=== PATIENT | female | born 1995 | race Caucasian/White ===

== ENCOUNTER 2019-01-22 08:53 | Emergency (ER) | payer MEDICAID, SELFPAY ==
[2019-01-22 08:58] VITALS: BP 122/72; PULSE 79; RESP 18; TEMP 36.6; O2SAT 98
--- NOTE | 2019-01-22 09:05 | ED.GENADUL_ITS ---
Discharge Plan Disposition Patient Disposition: HOME Discharge Details Chief Complaint: Sorethroat Clinical Impression: URI (upper respiratory infection), Nausea Primary Care Provider: Jared Henning ED Provider: Britt Doty Home Meds and New Rx's Prescriptions: New ondansetron 4 mg tablet,disintegrating 4 mg PO QID PRN (Reason: nausea and vomiting) Qty: 10 RF: 0 Continued famotidine 20 MG tablet 20 mg PO BID Qty: 60 RF: 0 Discharge Instructions Instructions: Upper Respiratory Infection (ED), Acute Nausea and Vomiting (ED) Additional Instructions: Encourage hydration. Tylenol and ibuprofen as needed for discomfort. We may use the Zofran as prescribed to help with any recurrent nausea. You may use lozenges and honey to help with sore throat. Please follow-up with primary care next week if not improving. If you develop shortness of breath, difficulty breathing, inability stay hydrated or the new/worsening symptoms please seek care urgently once again. Please begin vitamin. Please follow-up with [facility] to discuss care. Stand Alone Forms: Work Release Referrals: Jared Henning [Primary Care Provider] - Discharge Data Discharge Date/Time-TO BE ENTERED AT DEPARTURE: 01/22/19 09:36 Medical Decision Making Patient is a 23-year-old female presents today with chief complaint of sore throat. Reports that this began yesterday. Also reports that she has had nausea x5 days with one episode of vomiting. Denies any abdominal pain. No fevers or chills. Is endorsing right otalgia. Endorses cough that is nonproductive. Cough also began yesterday. On exam, posterior oropharynx mildly erythematous. Lungs are clear. No findings to suggest acute illness media. Advised likely viral etiology. Patient did have a normal menses last month but is actively trying to get which may be a source of her nausea. We will obtain a UPT. Discussed this plan with the patient is in agreement. I did advise that either way, she should begin taking a vitamin if she is actively trying to become . UPT negative. Discussed these findings with the patient. Advised likely viral etiology source of her URI and nausea. Will prescribe Zofran to help with symptomatic management. Encourage hydration. Advised Tylenol and ibuprofen as needed for discomfort. Advise follow-up with primary care next week if not improving. We discussed new/worsening symptoms when to seek care urgently once again. All of her questions and concerns were addressed and she is in agreement this plan. HPI General Mode of arrival: ambulatory . Date/Time Provider Initiated Documentation: 01/22/19 09:03 . Limitations to Documentation: no limitations . Information obtained by: patient, family and RN notes reviewed . History of Present Illness 23 year old F presents to the emergency department with the chief complaint of sore throat, described as moderate, Quality is described as burning, Patient reports no radiation. Patient started experiencing this day(s) (1) and it has been constant. No relieving factors improve symptom(s), No exacerbating factors reported . Patient notes cough and nausea/vomiting (nausea x 5 days, vomiting x 1 last week); denies chest pain, diaphoresis, fever/chills, headaches, loss of appetite, rash, shortness of breath and syncope. Patient did receive the following treatments prior to arrival, none Related Data Home Medications Medication Instructions Recorded Confirmed famotidine 20 mg PO BID #60 tab 06/20/17 ondansetron 4 mg PO QID PRN #10 tab 01/22/19 Previous Rx's Medication Instructions Recorded famotidine 20 mg PO BID #60 tab 06/20/17 ondansetron 4 mg PO QID PRN #10 tab 01/22/19 Allergies Allergy/AdvReac Type Severity Reaction Status Date / Time No Known Allergies Allergy Unverified 06/20/17 12:16 General Stated Complaint: Sorethroat ROXANNE: 4 Review of Systems Constitutional Reports as per HPI and Denies headache(s) Eyes Reports as per HPI, Denies eye discharge and Denies irritation ENT Reports as per HPI, Reports otalgia (right), Denies headache(s), Denies hoarseness, Denies nasal congestion, Denies nasal discharge, Denies sinus pain, Denies sinus pressure, Reports sore throat, Denies throat swelling and Denies tongue swelling Cardiovascular Reports as per HPI, Denies chest pain and Denies dyspnea Respiratory Reports as per HPI and Denies dyspnea Gastrointestinal Reports as per HPI, Denies abdominal pain, Denies change in bowel habits, Reports nausea and Denies vomiting Genitourinary Reports system reviewed and no additional complaints, except as docu (no change in urinary habits) and Denies abnormal menses (normal menses last month) Integumentary/Breasts Reports as per HPI and Denies rash Neurologic Reports as per HPI and Denies headache(s) Allergic/Immunologic Denies throat swelling and Denies tongue swelling [facility] Social History Smoking/Tobacco Use Status: Former Tobacco Use Alcohol Intake: current Alcohol Intake frequency: holidays/special occasions only Drug use: Never Do you feel safe in your relationship?: Yes Exam Const General: cooperative, healthy appearing, comfortable, no acute distress, well developed and well groomed Nutritional Appearance: average body habitus and well nourished Orientation: alert and awake [facility] Head: normal to inspection, normocephalic and atraumatic Ears: hearing grossly normal bilaterally, external ears normal and TM's normal bilaterally General nose exam: external nose normal and nares normal Face and sinus: normal facial exam, sinuses nontender and face symmetric Mouth: oral mucosae normal, lip normal, tongue normal, oropharynx normal, moist mucous membranes, no muffled voice, no trismus and No restricted motion Teeth and gingiva: dentition normal Throat: posterior oropharynx abnormal (mild erythema), tonsils normal and uvula midline Eyes General: appearance normal, both eyes and all related structures Neck Neck: normal visual inspection, full ROM, no lymphadenopathy and no meningeal s igns Resp Effort & Inspection: normal respiratory effort, able to speak in complete sentences and no respiratory distress Auscultation: clear to auscultation bilaterally, no rales, no rhonchi and no wheezes Cardio Rate: regular rate Rhythm: regular rhythm Heart Sounds: S1 normal and S2 normal GI Inspection: normal to inspection, no edema and non-distended Palpation: soft, no hepatosplenomegaly, no hernias, not rigid and nontender Percussion: normal to percussion Auscultation: normal bowel sounds Skin General skin exam: no rashes or lesions noted Neuro General: alert and awake Cognition: normal cognition Speech: speech normal Gait: normal gait Psych Appearance: grossly normal and well kempt Mental Status: mental status grossly normal Speech and Movement: speech and movement normal Course Vital Signs Temperature 36.6 C 01/22/19 08:58 Pulse 79 01/22/19 08:58 Respiratory Rate 18 01/22/19 08:58 Blood Pressure 122/72 01/22/19 08:58 Pulse Oximetry 98 01/22/19 08:58 Temperature 36.6 C 01/22/19 08:58 Temperature Source Tympanic 01/22/19 08:58 Pulse 79 01/22/19 08:58 Respiratory Rate 18 01/22/19 08:58 Blood Pressure 122/72 01/22/19 08:58 Blood Pressure Position Sitting 01/22/19 08:58 Pulse Oximetry 98 01/22/19 08:58 Oxygen Delivery Method Room Air 01/22/19 08:58 Oxygen Flow Rate 0 01/22/19 08:58 Pain Level 9 01/22/19 08:58
== END 2019-01-22 09:36 | disposition home or self-care (01) ==
PROVIDERS: Emergency Provider Physician Assistant; PCP Nurse Practitioner Family
DX: J02.9 Acute pharyngitis, unspecified (principal); R11.0 Nausea
CPT/HCPCS: 87880; 99283

== ENCOUNTER 2019-12-12 20:07 | Emergency (ER) | payer SELFPAY ==
[2019-12-12 20:13] VITALS: BP 146/72; PULSE 102; RESP 16; TEMP 36.8; O2SAT 96
--- NOTE | 2019-12-12 20:22 | ED.GENADUL_ITS ---
Discharge Plan Disposition Patient Disposition: HOME Condition: Stable Discharge Details Chief Complaint: RashLesion Clinical Impression: Rash Primary Care Provider: Jared Henning ED Provider: Landon Hu Home Meds and New Rx's Prescriptions: New prednisone 20 mg tablet 60 mg PO DAILY 4 Days Qty: 12 RF: 0 No Action famotidine 20 MG tablet 20 mg PO BID Qty: 60 RF: 0 ondansetron 4 mg tablet,disintegrating 4 mg PO QID PRN (Reason: nausea and vomiting) Qty: 10 RF: 0 Discharge Instructions Additional Instructions: your rash is consistent with dermatitis which can be caused by things like poison skylar you can take benadryl for itching as needed every 4 hours if not better in a week see your primary care provider if you feel more ill, have difficulty breathing or fevers return to the emergency department Medical Decision Making 24 yo female who denie chronic medical problems comes in with rash primarily on lower back and upper posterior thighs since Sunday after sitting on a lawn. Denies fevers, gi symptoms or pain or respiratory symptoms. States it's itching. Has several mild erythema of various sizes that are slightly raised on the back and santiago and not warm to touch. Consistent with dermatitis, no evidence of cellulitis or nec fasc. Will treat with prednisone, advised f/u with pcp and return precautions given Differential Diagnosis Differential Diagnosis: dermatitis, poison skylar HPI General Mode of arrival: ambulatory . Date/Time Provider Initiated Documentation: 12/12/19 20:12 . Limitations to Documentation: no limitations . Information obtained by: patient . History of Present Illness 24 year old F presents to the emergency department with the chief complaint of rash, described as moderate, and is localized to the back. Patient started expe riencing this day(s) (5) and it has been constant. No relieving factors improve symptom(s), No exacerbating factors reported . Patient notes no other symptoms.. Related Data Home Medications Medication Instructions Recorded Confirmed famotidine 20 mg PO BID #60 tab 06/20/17 ondansetron 4 mg PO QID PRN #10 tab 01/22/19 prednisone 60 mg PO DAILY 4 Days #12 tab 12/12/19 Previous Rx's Medication Instructions Recorded famotidine 20 mg PO BID #60 tab 06/20/17 ondansetron 4 mg PO QID PRN #10 tab 01/22/19 prednisone 60 mg PO DAILY 4 Days #12 tab 12/12/19 Allergies Allergy/AdvReac Type Severity Reaction Status Date / Time No Known Allergies Allergy Unverified 06/20/17 12:16 General Stated Complaint: RashLesion ROXANNE: 4 Review of Systems All systems reviewed & are unremarkable except as noted in HPI and below Constitutional Constitutional: Denies chills, Denies fever(s) and Denies weakness Cardiovascular Cardiovascular: Denies chest pain and Denies dyspnea Respiratory Respiratory: Denies cough and Denies dyspnea Gastrointestinal Gastrointestinal: Denies abdominal pain, Denies nausea and Denies vomiting Musculoskeletal Musculoskeletal: Denies joint swelling Neurologic Neurologic: Denies weakness [facility] Social History Smoking/Tobacco Use Status: Former Tobacco Use Alcohol Intake: current Alcohol Intake frequency: holidays/special occasions only Drug use: Never Do you feel safe at home: Yes Do you feel safe in your relationship?: Yes Exam Const General: no acute distress Orientation: alert HENMT Head: normal to inspection Ears: external ears normal General nose exam: external nose normal Mouth: moist mucous membranes Eyes General: appearance normal, both eyes and all related structures Neck Neck: normal visual inspection Resp Effort & Inspection: normal respiratory effort and able to speak in complete sentences Cardio Rate: regular rate Skin General skin exam: elasticity normal Neuro General: patient alert and patient oriented x3 Extrem General: normal to inspection Psych Mental Status: mental status grossly normal Course Vital Signs Vital signs: Vital Signs Temperature 36.8 C 12/12/19 20:13 Pulse 102 H 12/12/19 20:13 Respiratory Rate 16 12/12/19 20:13 Blood Pressure 146/72 H 12/12/19 20:13 Pulse Oximetry 96 12/12/19 20:13 Temperature 36.8 C 12/12/19 20:13 Temperature Source Temporal Artery Scan 12/12/19 20:13 Pulse 102 H 12/12/19 20:13 Respiratory Rate 16 12/12/19 20:13 Respiratory Effort 12/12/19 20:17 Blood Pressure 146/72 H 12/12/19 20:13 Blood Pressure Position Sitting 12/12/19 20:13 Pulse Oximetry 96 12/12/19 20:13 Oxygen Delivery Method Room Air 12/12/19 20:13 Oxygen Flow Rate 0 12/12/19 20:13 Pain Level 7 12/12/19 20:13
[2019-12-12] MEDS: predniSONE 20 MG TAB 60 MG PO (20:27)
== END 2019-12-12 20:25 | disposition home or self-care (01) ==
LOC: ER 20:27
PROVIDERS: Emergency Provider Emergency Medicine; PCP Nurse Practitioner Family
DX: L30.8 Other specified dermatitis (principal)
CPT/HCPCS: 99283; J7512

== ENCOUNTER 2020-02-03 05:48 | Emergency (ER) | payer SELFPAY ==
[2020-02-03 05:51] VITALS: BP 138/74; PULSE 82; RESP 16; TEMP 36.8; O2SAT 99
--- NOTE | 2020-02-03 06:01 | ED.GENADUL_ITS ---
Discharge Plan Disposition Patient Disposition: HOME Condition: Stable Discharge Details Chief Complaint: RashLesion Clinical Impression: Dermatitis Primary Care Provider: Jared Henning ED Provider: Mayank Warren Home Meds and New Rx's Prescriptions: New prednisone 20 mg tablet 40 mg PO DAILY 6 Days Qty: 12 RF: 0 loratadine [Claritin] 10 mg tablet 10 mg PO DAILY Qty: 10 RF: 0 Discharge Instructions Instructions: Poison Domi (ED), Dermatitis (ED) Additional Instructions: Take prednisone and Claritin as prescribed. See enclosed information regarding poison domi. If you develop a fever or any other acute concerns. Follow-up with regular doctor if not improving in 1 week's time. Stand Alone Forms: Work Release Medical Decision Making 24-year-old female with a pruritic plant dermatitis that she got after visiting her brother. Consistent with poison oak/poison domi. Will place her on a course of prednisone and antihistamine. She is stable and appropriate for discharge home. HPI General Mode of arrival: ambulatory . Date/Time Provider Initiated Documentation: 02/03/20 05:57 . Limitations to Documentation: no limitations . Information obtained by: patient . History of Present Illness 24 year old F presents to the emergency department with the chief complaint of Itching weeping rash, described as moderate and similar to prior episodes, and is localized to the left, right, upper extremity and lower extremity. Patient reports no radiation. Patient started experiencing this day(s) and it has been constant. No relieving factors improve symptom(s), No exacerbating factors reported . Patient notes rash; denies fever/chills and shortness of breath. Patient did receive the following treatments prior to arrival, other (Calamine lotion) Related Data Home Medications Medication Instructions Recorded Confirmed loratadine [Claritin] 10 mg PO DAILY #10 tab 02/03/20 prednisone 40 mg PO DAILY 6 Days #12 tab 02/03/20 Previous Rx's Medication Instructions Recorded loratadine [Claritin] 10 mg PO DAILY #10 tab 02/03/20 prednisone 40 mg PO DAILY 6 Days #12 tab 02/03/20 Allergies Allergy/AdvReac Type Severity Reaction Status Date / Time No Known Allergies Allergy Unverified 02/03/20 05:56 General Stated Complaint: RashLesion ROXANNE: 5 Review of Systems Narrative: No other complaints. 4 systems reviewed and otherwise negative PFSH Medical History No acute medical problems (Acute) Social History Smoking/Tobacco Use Status: Former Tobacco Use Alcohol Intake: current Alcohol Intake frequency: holidays/special occasions only Drug use: Never Do you feel safe at home: Yes Do you feel safe in your relationship?: Yes Exam Narrative Exam Narrative: GEN: awake, alert, oriented 3. Pleasant, well groomed, interactive. HEAD: Normocephalic, atraumatic EYES: PERRL, EOMI CHEST/RESP: No respiratory distress EXT: Full ROM, no edema, there is a weeping, raised, erythematous rash primarily on both legs and scattered patches Neuro: Grossly normal neurologic exam, conversant, interactive. Psych: Speech fluent, thoughts congruent, affect normal Course Vital Signs Vital signs: Vital Signs Temperature 36.8 C 02/03/20 05:51 Pulse 82 02/03/20 05:51 Respiratory Rate 16 02/03/20 05:51 Blood Pressure 138/74 02/03/20 05:51 Pulse Oximetry 99 02/03/20 05:51 Temperature 36.8 C 02/03/20 05:51 Temperature Source Skin 02/03/20 05:51 Pulse 82 02/03/20 05:51 Respiratory Rate 16 02/03/20 05:51 Respiratory Effort Non-Labored 02/03/20 05:57 Blood Pressure 138/74 02/03/20 05:51 Pulse Oximetry 99 02/03/20 05:51 Pain Level 8 02/03/20 05:51
[2020-02-03] MEDS: Loratidine 10 MG TAB PO (06:11)
[2020-02-03] MEDS: predniSONE 20 MG TAB 60 MG PO (06:11)
== END 2020-02-03 06:15 | disposition home or self-care (01) ==
PROVIDERS: Emergency Provider Emergency Medicine; PCP Nurse Practitioner Family
DX: L23.7 Allergic contact dermatitis due to plants, except food (principal)
CPT/HCPCS: 99283; J7512

== ENCOUNTER 2024-06-19 15:22 | Emergency (ER) | payer MEDICAID, SELFPAY ==
[2024-06-19 15:27] VITALS: BP 141/87; PULSE 66; RESP 18; TEMP 37.1; O2SAT 98
[2024-06-19 16:24] LABS: Abs Immature Grans 0.04 10^3/uL (0.0-0.06); Absolute Basophil Count 0.07 10^3/uL (0.0-0.2); Absolute Eosinophil Count 0.15 10^3/uL (0.0-0.7); Absolute Monocyte Count 0.54 10^3/uL (0.1-0.8); Absolute Neutrophil Count 7.11 10^3/uL (1.2-6.7); Basophils % 0.7 %; Eosinophils % 1.4 %; HCT 42.6 % (36.0-46.0); HGB 14.9 g/dL (11.2-15.7); Immature Grans % 0.4 %; Lymphocytes % 26.1 %; MCH 29.9 pg (27.0-33.0); MCV 86 fL (80-95); MPV 10.8 fL (8.0-11.0); Neutrophils % 66.4 %; Platelet Count 249 10^3/uL (130-400); RBC 4.98 10^6/uL (3.93-5.22); RDW 11.5 % (11.7-14.6); RDW-SD 35.7 fL; WBC 10.71 10^3/uL (4.4-10.8)
[2024-06-19] MEDS: diphenhydrAMINE 50 MG/ML VIAL 12.5 MG IVP (16:29)
[2024-06-19] MEDS: Ketorolac 15 MG/ML VIAL 7.5 MG IVP (16:30)
[2024-06-19] MEDS: Metoclopramide 10 MG/2 ML VIAL IVP (16:31)
[2024-06-19 16:35] LABS: Bilirubin Negative (Negative); Blood Negative (Negative); Clarity Clear (Clear); Glucose Negative (Negative); Ketones Negative (Negative); Leukocyte Esterase Negative (Negative); Nitrite Negative (Negative); Specific Gravity 1.025 (1.005-1.025); Urobilinogen 0.2 mg/dL (Up to 0.2); pH 6.5 (5-8)
[2024-06-19 16:38] LABS: ALT 25 U/L (14-59); AST 10 U/L (15-37); Albumin 3.9 g/dL (3.4-5.0); Alkaline Phosphatase 67 U/L (46-116); Anion Gap 8.2 mmol/L (3-11); BUN 8 mg/dL (7-18); Bilirubin, Total 0.49 mg/dL (0.2-1.0); CO2 26.8 mmol/L (21.0-32.0); CREATININE 0.9 mg/dL (0.55-1.02); Calcium 9.3 mg/dL (8.5-10.1); Chloride 107 mmol/L (98-107); Estimated GFR 88.75 (mL/min/1.73m2); Glucose 109 mg/dL (74-106); Lipase 32 U/L (16-77); Magnesium 1.7 mg/dL (1.8-2.4); Potassium 3.8 mmol/L (3.5-5.1); Sodium 142 mmol/L (136-145); Total Protein 7.8 g/dL (6.4-8.2)
[2024-06-19 16:39] VITALS: BP 141/87; PULSE 66; RESP 18; TEMP 37.1; O2SAT 98
[2024-06-19] MEDS: Normal Saline - Diluent 50 ML VIAL IV (16:43)
[2024-06-19] MEDS: Omnipaque 350 MG/ML 100 ML BTL IJ (16:44)
--- NOTE | 2024-06-19 16:48 | DI.CT_ITS ---
Exam(s) CT ABDOMEN PELVIS W EXAM: CT ABDOMEN PELVIS W CLINICAL HISTORY: epigastric and RUQ pain. TECHNIQUE: Imaging Protocol: Axial computed tomography images with coronal and sagittal reformatted images were created and reviewed CONTRAST MATERIAL: Intravenous: Omnipaque 350 Contrast volume:85 ml Oral: no COMPARISON: CT ABD PELVIS WITH CONTRAST from 10/19/2008 US ABDOMEN ULTRASOUND (P) from 07/19/2012 FINDINGS: ABDOMEN and PELVIS: Lung Bases: No acute findings. Liver: Normal density. No suspicious mass. Gallbladder and biliary tract: No radiodense calculus. No biliary dilation. Pancreas: Normal density. No abnormal calcifications or inflammatory process. No evidence of mass. Spleen: Normal. Kidneys: Normal size, contour and axis. No radiodense stones. No obstructive uropathy. No suspicious masses seen. Adrenal glands: No masses seen. Vasculature: Abdominal aorta non-dilated. Soft tissues: Unremarkable. Bladder: Nearly empty. Not well evaluated Bowel: Wall thickening of the antrum of the stomach and descending duodenum. No evidence of perforat ion. No obstruction. Appendix normal. Normal quantity of stool. Peritoneal cavity: No ascites. No focal collection. No mesenteric inflammatory response. Bones: Unremarkable for age. Reproductive organs: Unremarkable. Lymph nodes: No pathologically enlarged lymph nodes. IMPRESSION:: Wall thickening and mild stranding in the fat adjacent to the antrum of the stomach con sistent with antral gastritis. Mild wall thickening of the descending duodenum. No perforation. RADIATION DOSE DELIVERED: Total DLP DATA REPOSITORY: All CT scans at this facility are submitted to the National Radiology Data Registry (NRDR) Dose Index Registry (DIR) with the [employer] ([employer]). RADIATION OPTIMIZATION: All CT scans at this facility use at least one of these dose optimization te chniques: automated exposure control; mA and/or kV adjustment per patient size (includes targeted exa ms where dose is matched to clinical indication); or iterative reconstruction.
--- NOTE | 2024-06-19 17:17 | W.ED.GENAD ---
Discharge Plan Disposition Patient Disposition: Home Condition: Stable Discharge Details Clinical Impression: Gastritis Primary Care Provider: Jared Henning ED Provider: Ashia Rogers Home Meds and New Rx's Prescriptions: New famotidine [Pepcid] 20 mg tablet 20 mg PO BID Qty: 30 0RF omeprazole 20 mg capsule,delayed release(DR/EC) 20 mg PO DAILY 28 Days Qty: 28 0RF ondansetron 4 mg tablet,disintegrating 4 mg PO TID PRNQty: 15 0RF Discharge Instructions Instructions: Gastritis (DC), Nausea and vomiting in adults Additional Instructions: Take Zofran as needed for nausea and vomiting Take the Pepcid and Prilosec as prescribed Stay away from spicy foods, tomato-based products, citrus based products, coffee You may have gisela tea to help calm your stomach Please be reevaluated if your symptoms are persistent or worsening, or should you have any new concerning symptoms If your symptoms persist you may need an endoscopy to further evaluate you Referrals: Jared Henning [Primary Care Provider] - 1 week HPI General Date/Time Provider Initiated Documentation: 06/19/24 15:45. HPI Narrative: This 28-year-old female presents with report of abdominal pain that started last evening with nausea and vomiting today. Denies any diarrhea. Denies any chance of /fever or chills. Lives with her boyfriend who is not reportedly ill. Denies history of similar symptoms in the past. Denies any known spoiled food exposures. Related Data Home Medications ?Medication ?Instructions ?Recorded ?Confirmed famotidine 20 mg tablet (Pepcid) 20 mg PO BID #30 tabs 06/19/24 omeprazole 20 mg capsule,delayed 20 mg PO DAILY 4 weeks #28 caps 06/19/24 release ondansetron 4 mg disintegrating 4 mg PO TID PRN #15 tabs 06/19/24 tablet Previous Rx's ?Medication ?Instructions ?Recorded famotidine 20 mg tablet (Pepcid) 20 mg PO BID #30 tabs 06/19/24 omeprazole 20 mg capsule,delayed 20 mg PO DAILY 4 weeks #28 caps 06/19/24 release ondansetron 4 mg disintegrating 4 mg PO TID PRN #15 tabs 06/19/24 tablet Allergies Allergy/AdvReac Type Severity Reaction Status Date / Time No Known Allergies Allergy Verified 06/19/24 15:31 General Stated Complaint: Abd Prob ROXANNE: 3 Exam Narrative Exam Narrative: Alert and oriented 28-year-old female in no acute distress, pupils equal round reactive to light and accommodation, lungs clear to auscultation, Cardiac Rate Rhythm Regular abdominal tenderness left upper quadrant, no rebound or guarding, distal pulses intact Course Vital Signs Vital signs: Vital Signs Temperature 37.1 C 06/19/24 15:27 Pulse 66 06/19/24 15:27 Respiratory Rate 18 06/19/24 15:27 Blood Pressure 141/87 H 06/19/24 15:27 Pulse Oximetry 98 06/19/24 15:27 Temperature 37.1 C 06/19/24 16:39 Temperature Source Temporal Artery Scan 06/19/24 16:39 Pulse 66 06/19/24 16:39 Respiratory Rate 18 06/19/24 16:39 Respiratory Effort Normal 06/19/24 16:38 Blood Pressure 141/87 H 06/19/24 16:39 Blood Pressure Position Sitting 06/19/24 16:39 Pulse Oximetry 98 06/19/24 16:39 Oxygen Delivery Method Room Air 06/19/24 16:39 Oxygen Flow Rate 0 06/19/24 16:39 Pain Level 8 06/19/24 16:39 Lab/Test Results Lab/Test Results: Laboratory Tests Range/Units 06/19/24 06/19/24 15:30 16:18 WBC (4.4-10.8) 10^3/uL 10.71 RBC (3.93-5.22) 10^6/uL 4.98 Hgb (11.2-15.7) g/dL 14.9 Hct (36.0-46.0) % 42.6 MCV (80-95) fL 86 MCH (27.0-33.0) pg 29.9 MCHC (32.0-36.0) % 35.0 RDW (11.7-14.6) % 11.5 L Plt Count (130-400) 10^3/uL 249 MPV (8.0-11.0) fL 10.8 Immature Gran % % 0.4 Neutrophils % % 66.4 Lymphocytes % % 26.1 Monocytes % % 5.0 Eosinophils % % 1.4 Basophils % % 0.7 Nucleated RBC % (0.0-0.3) % 0.0 Absolute Neutrophils (1.2-6.7) 10^3/uL 7.11 H Absolute Lymphocytes (1.2-3.4) 10^3/uL 2.80 Absolute Monocytes (0.1-0.8) 10^3/uL 0.54 Absolute Eosinophils (0.0-0.7) 10^3/uL 0.15 Absolute Basophils (0.0-0.2) 10^3/uL 0.07 Sodium (136-145) mmol/L 142 Potassium (3.5-5.1) mmol/L 3.8 Chloride (98-107) mmol/L 107 Carbon Dioxide (21.0-32.0) mmol/L 26.8 Anion Gap (3-11) mmol/L 8.2 BUN (7-18) mg/dL 8 Creatinine (0.55-1.02) mg/dL 0.9 Est GFR (CKD-EPI 2020) (mL/min/1.73m2) 88.75 Glucose (74-106) mg/dL 109 H Calcium (8.5-10.1) mg/dL 9.3 Magnesium (1.8-2.4) mg/dL 1.7 L Total Bilirubin (0.2-1.0) mg/dL 0.49 AST (15-37) U/L 10 L ALT (14-59) U/L 25 Alkaline Phosphatase (46-116) U/L 67 Total Protein (6.4-8.2) g/dL 7.8 Albumin (3.4-5.0) g/dL 3.9 Lipase (16-77) U/L 32 Urine Color (Yellow) Yellow Urine Clarity (Clear) Clear Urine pH (5-8) 6.5 Ur Specific Mathews (1.005-1.025) 1.025 Urine Protein (Neg-Trace) mg/dL Negative Urine Ketones (Negative) mg/dL Negative Urine Blood (Negative) Negative Urine Nitrite (Negative) Negative Urine Bilirubin (Negative) Negative Urine Urobilinogen (Up to 0.2) mg/dL 0.2 Ur Leukocyte Esterase (Negative) Negative Urine Glucose (Negative) mg/dL Negative POC- Test(urine) Negative Medical Decision Making 28-year-old female presenting in acute distress secondary to nausea and vomiting. CT abdomen pelvis per radiology interpretation my review does not show evidence of acute abnormality. Diagnostic labs are reassuringly within normal limits aside from a mildly low magnesium. Patient is feeling improvement, able to tolerate p.o., will prescribe Prilosec and Pepcid. Will need recheck in 1 week. Return precautions reviewed and patient expressed understanding Quality:SDOH Health Related Social Needs: No Data to Display PFSH All Active Problems (Updated 06/19/24 @ 17:23 by NICOLASA Arguelles) Gastritis (Acute) Medical History (Updated 06/19/24 @ 17:23 by NICOLASA Arguelles) No acute medical problems Social History Smoking/Tobacco Use Status: Former Tobacco Use Smoking risk assessment performed?: Yes Alcohol Intake: current Alcohol Intake frequency: holidays/special occasions only Drug use: Never Do you feel safe at home: Yes Do you feel safe in your relationship?: Yes
[2024-06-19] MEDS: Normal Saline 50 ML 400 ML (17:43)
[2024-06-19] MEDS: Famotidine 20 MG/2 ML VIAL IVP (17:43)
[2024-06-19 17:57] VITALS: BP 164/104; PULSE 78; RESP 15; O2SAT 99
== END 2024-06-19 17:59 | disposition home or self-care (01) ==
LOC: ER 17:50
PROVIDERS: Emergency Provider Physician Assistant; PCP Nurse Practitioner Family
DX: K29.70 Gastritis, unspecified, without bleeding (principal)
CPT/HCPCS: 36415; 80053; 81025; 83690; 96374; 96375; 99285; 74177; 81003; 83735; 85025; 99284; J1200; J1885; J2765; J3490

== ENCOUNTER 2024-11-20 11:11 | Outpatient (REF) | payer MEDICAID, SELFPAY ==
[2024-11-21 11:07] LABS: Chlamydia Result Negative (Negative); GC Result Negative (Negative)
== END 2024-11-20 11:12 | disposition home or self-care (01) ==
LOC: LBN 11:11
PROVIDERS: PCP Nurse Practitioner Family; Visit Provider Obstetrics & Gynecology
DX: Z12.4 Encounter for screening for malignant neoplasm of cervix (principal); A59.01 Trichomonal vulvovaginitis
CPT/HCPCS: 87491; 87591; 88142; 87480; 87510; 87624; 87660

== ENCOUNTER 2024-11-26 14:06 | Outpatient (REF) | payer MEDICAID, SELFPAY | END 2024-11-26 14:07 | disposition home or self-care (01) | LOC: LBN 14:06 | PROVIDERS: PCP Nurse Practitioner Family; Visit Provider Obstetrics & Gynecology | DX: N89.8 Other specified noninflammatory disorders of vagina (principal); A59.9 Trichomoniasis, unspecified | CPT/HCPCS: 87480; 87510; 87660 ==